=== PATIENT | female | born 1980 | race Caucasian/White ===

== ENCOUNTER 2024-06-28 00:41 | Day surgery (SDC) | payer OTHER, SELFPAY ==
[2024-06-07 10:49] VITALS: BMI 31.4
[2024-06-28 06:24] VITALS: BP 133/84; PULSE 82; RESP 18; TEMP 36.2; O2SAT 100
[2024-06-28 06:31] LABS: BEDSIDEPREGUCG Negative
[2024-06-28] MEDS: LACTATED RINGERS 1,000 ML 150 ML IV CONT (06:36)
[2024-06-28 06:40] LABS: Glucose Point of Care 140 mg/dl (65-105)
--- NOTE | 2024-06-28 07:26 | P.PNAN_ITS ---
Anes - Initial Pre Proc Eval Procedure: Operation Date: 06/28/24 07:30 Proposed Procedures p Screening Colonoscopy - Star Redmond MD Date/Time: 06/28/24 07:26 Surgeon: Star Redmond MD Pre Op Diagnosis: neoplasm screening Patient Data Age: 43 Gender: F Height: 1.7 m Weight: 87.2 kg Last Vital Signs Temp 97.2 F L 06/28/24 06:24 Pulse 82 06/28/24 06:24 Resp 18 06/28/24 06:24 BP 133/84 06/28/24 06:24 Pulse Ox 100 06/28/24 06:24 O2 Del Method Room Air 06/28/24 06:24 Allergies Allergy/AdvReac Type Severity Reaction Status Date / Time Penicillins Allergy Unknown Rash Unverified 06/28/24 06:23 Sulfa (Sulfonamide Allergy Unknown Rash Unverified 06/28/24 06:23 Antibiotics) doxycycline Allergy Rash Verified 06/28/24 06:23 Home Medications Medication Instructions Recorded Confirmed Type lisinopril 2.5 mg tablet 2.5 mg PO DAILY 06/07/24 06/07/24 History metformin 500 mg tablet 500 mg PO DAILY 06/07/24 06/07/24 History sitagliptin phosphate 50 mg tablet 50 mg PO DAILY 06/07/24 06/07/24 History (Cecilia) Laboratory Tests 06/28/24 06/28/24 06:24 06:33 POC Capillary Glucose 140 H mg/dl (65-105) POC Urine HCG, Qual Negative POC Ur Preg QC Yes Patient hx anesthesia problems: none Family hx anesthesia problems: none Results Review: All pre-operative results and documents have been reviewed as part of the pre- operative evaluation. [facility] Social History Social History Smoking packs per day: 1 Smoking cigarettes per day: 20.0 Years smoked: 6 Smoking pack-years: 6.00 Smoking status: Former smoker Tobacco type: cigarettes Alcohol intake: current Alcohol use details: OCCASIONALLY Substance use: never Substance use type: does not use Living arrangements: with family Spiritual care concerns: No Anes - Eval Final PreProcedure Day of Procedure 06/28/24 07:26 Patient weight: obese Heart: regular rate and rhythm Lungs: clear to auscultation Airway: Mallampati scale class II Neurological: alert and oriented Last oral intake: >/= 8 hours ASA classification: III Emergent: no Anesthetic plan: proceed Anesthesia type and monitoring: general GIVS and standard monitoring Results Review: All pre-operative results and documents have been reviewed as part of the pre- operative evaluation. Informed Consent: The patient's anesthetic plan and its attendant risks and benefits were discussed with the patient/family/POA. Questions were solicited and answers provided to the satisfaction of the patient/family/POA.
--- NOTE | 2024-06-28 07:27 | PM.HPGS ---
History of Present Illness History of Present Illness Consent: Risks, benefits, and alternatives have been discussed and questions answered. Patient agrees to proceed with procedure. Chief complaint: neoplasm screening Narrative: Frida Figueroa is a 43 year old female here for first screening colonoscopy Review of Systems Review of Systems: All systems reviewed & are unremarkable except as noted in HPI and below PMFSH Past Medical History Medical History (Updated 06/28/24 @ 07:28 by Star Redmond MD) Colon cancer screening Social History Social History Smoking packs per day: 1 Smoking cigarettes per day: 20.0 Years smoked: 6 Smoking pack-years: 6.00 Smoking status: Former smoker Tobacco type: cigarettes Alcohol intake: current Alcohol use details: OCCASIONALLY Substance use: never Substance use type: does not use Living arrangements: with family Spiritual care concerns: No Meds Home Medications and Allergies Home Medications Medication Instructions Recorded Confirmed Type lisinopril 2.5 mg tablet 2.5 mg PO DAILY 06/07/24 06/07/24 History metformin 500 mg tablet 500 mg PO DAILY 06/07/24 06/07/24 History sitagliptin phosphate 50 mg tablet 50 mg PO DAILY 06/07/24 06/07/24 History (Januvia) Allergies Allergy/AdvReac Type Severity Reaction Status Date / Time Penicillins Allergy Unknown Rash Unverified 06/28/24 06:23 Sulfa (Sulfonamide Allergy Unknown Rash Unverified 06/28/24 06:23 Antibiotics) doxycycline Allergy Rash Verified 06/28/24 06:23 Vital Signs Vital Signs - 24 hr 06/28/24 06:24 Temperature 97.2 F L Pulse Rate 82 Respiratory Rate 18 Blood Pressure 133/84 Pulse Oximetry 100 Oxygen Delivery Room Air Exam Const: General: comfortable and no acute distress HENMT: Face/Nose/Sinus: Normal nares present Eyes: General: appearance normal, both eyes and all related structures Neck: Neck: no JVD Resp: Auscultation: clear to auscultation bilaterally Cardio: Rate: regular rate Rhythm: regular rhythm GI: Inspection: non-distended GI Palp: Yes Soft to palpation Skin: General skin exam: normal color Neuro: General: gait normal Speech: normal speech Extrem: General: normal to inspection Psych: Mental Status: mental status grossly normal Assessment and Plan Assessment and plan (1) Colon cancer screening: Code(s): Z12.11 - Encounter for screening for malignant neoplasm of colon Status: Acute Assessment and Plan: colonoscopy
[2024-06-28 07:40] VITALS: BP 104/56; PULSE 78; RESP 18; O2SAT 96
[2024-06-28 07:50] VITALS: BP 108/69; PULSE 80; RESP 20; O2SAT 100
[2024-06-28 08:00] VITALS: BP 120/83; PULSE 79; RESP 19; O2SAT 100
== END 2024-06-28 08:07 | disposition home or self-care (01) ==
PROVIDERS: Anesthesiology; PCP Emergency Medicine; Visit Provider Internal Medicine Gastroenterology
PROC: 0DJD8ZZ Inspection of Lower Intestinal Tract, Via Natural or Artificial Opening Endoscopic (ICD-10-PCS; CPT 45378; principal; 2024-06-28 07:30)
DX: Z12.11 Encounter for screening for malignant neoplasm of colon (principal); K63.5 Polyp of colon; K64.8 Other hemorrhoids; Z79.84 Long term (current) use of oral hypoglycemic drugs; Z87.891 Personal history of nicotine dependence; E66.9 Obesity, unspecified; Z68.30 Body mass index [BMI] 30.0-30.9, adult
CPT/HCPCS: 45385; 82948; 88305; J2704; J7120